=== PATIENT | male | born 1965 | race Caucasian/White ===

== ENCOUNTER 2025-05-09 12:26 | Outpatient (CLI) | payer OTHER, SELFPAY ==
--- NOTE | 2025-05-09 14:25 | P.ANES_ITS ---
Anesthesia Charges Start Date/Time Anesthesia Start Date: 05/09/25 Anesthesia Start Time: 13:57 Stop Date/Time Anesthesia Stop Date: 05/09/25 Anesthesia Stop Time: 14:21 Coding CPT Codes CPT Codes: ANES LWR INTST NDSC NOS - [id number] ([id number]) P3 - PATIENT W/SEVERE SYS DISEASE, QK - ADVISORY SERVICES ASSOCIATE 2-4 CNCRNT ANES PROC, QX - LEVEL VIAL INSIDE GRINDER SVC W/ MD MED DIRECTION
--- NOTE | 2025-05-09 14:25 | W.ANESCHARGE ---
Anesthesia Charges Start Date/Time Anesthesia Start Date: 05/09/25 Anesthesia Start Time: 13:57 Stop Date/Time Anesthesia Stop Date: 05/09/25 Anesthesia Stop Time: 14:21 Coding CPT Codes CPT Codes: ANES LWR INTST NDSC NOS - [id number] ([id number]) P3 - PATIENT W/SEVERE SYS DISEASE, QK - MAP PLOTTER 2-4 CNCRNT ANES PROC, QX - C APPLICATION DEVELOPER SVC W/ MD MED DIRECTION
--- NOTE | 2025-05-09 15:23 | P.ANES_ITS ---
Anesthesia Charges Start Date/Time Anesthesia Start Date: 05/09/25 Anesthesia Start Time: 13:57 Stop Date/Time Anesthesia Stop Date: 05/09/25 Anesthesia Stop Time: 14:21 Coding CPT Codes CPT Codes: ANES LWR INTST NDSC NOS - [id number] ([id number]) QK - CANS VACUUM TESTER 2-4 CNCRNT ANES PROC, QX - ASSEMBLER SMALL PRODUCTS SVC W/ MED DIRECTION, P3 - PATIENT W/SEVERE SYS DISEASE
--- NOTE | 2025-05-09 15:23 | W.ANESCHARGE ---
Anesthesia Charges Start Date/Time Anesthesia Start Date: 05/09/25 Anesthesia Start Time: 13:57 Stop Date/Time Anesthesia Stop Date: 05/09/25 Anesthesia Stop Time: 14:21 Coding CPT Codes CPT Codes: ANES LWR INTST NDSC NOS - [id number] ([id number]) QK - FISH BAIT PICKER 2-4 CNCRNT ANES PROC, QX - ALUMNI SECRETARY SVC W/ MED DIRECTION, P3 - PATIENT W/SEVERE SYS DISEASE
== END 2025-05-09 12:27 | disposition home or self-care (01) ==
LOC: OP CLINIC 12:31
PROVIDERS: PCP Student in an Organized Health Care Education/Training Program; Visit Provider Internal Medicine Gastroenterology
DX: Z12.11 Encounter for screening for malignant neoplasm of colon (principal); Z86.0101 Personal history of adenomatous and serrated colon polyps; D12.0 Benign neoplasm of cecum; D12.3 Benign neoplasm of transverse colon; D12.8 Benign neoplasm of rectum
CPT/HCPCS: 00811; 00812; 45380; 45385; 88305; J2704